=== PATIENT | male | born 1970 | race Caucasian/White ===

== ENCOUNTER 2023-02-23 14:35 | Emergency (ER) | payer BC, OTHER ==
[~2023-02-23] VITALS: Ht 180.3 cm; Wt 95.2 kg
[2023-02-23 15:51] VITALS: BP 137/92
== END 2023-02-23 16:30 | disposition home or self-care (01) ==
LOC: ER 14:35
DX: L50.9 Urticaria, unspecified (principal); Z88.0 Allergy status to penicillin; Z91.010 Allergy to peanuts; Z91.012 Allergy to eggs; Z88.8 Allergy status to other drugs, medicaments and biological substances
CPT/HCPCS: 96372; 99283-25; A9270; J2930

== ENCOUNTER → 2024-04-23 | Outpatient (CLI) | payer BC, OTHER ==
[2024-04-23 15:18] LABS: Creatinine, Blood 0.94 mg/dL (0.60-1.20); Potassium, Blood 3.9 mmol/L (3.5-5.5)
== END | disposition home or self-care (01) ==
LOC: LAB SHORT 13:57
PROVIDERS: Family Medicine
DX: I10 Essential (primary) hypertension (principal)
CPT/HCPCS: 80048

== ENCOUNTER → 2024-10-22 | Outpatient (CLI) | payer BC, OTHER ==
[2024-10-27 14:39] LABS: TESTOSTERONE, FREE BY DIALYSIS 46.2 pg/mL (47.0-244.0); TESTOSTERONE, TOTAL MASS SPEC 349.2 ng/dL (300.0-890.0)
== END ==
LOC: LAB 09:20 → LAB SHORT 09:20
PROVIDERS: Family Medicine
DX: Z00.01 Encounter for general adult medical examination with abnormal findings (principal); E29.1 Testicular hypofunction
CPT/HCPCS: 84402; 84403